=== PATIENT | female | born 1950 | race Caucasian/White ===

== ENCOUNTER 2016-07-25 09:00 | Day surgery (SDC) | payer MEDICARE ==
[~2016-07-25] VITALS: Ht 160 cm; Wt 82.1 kg
[~2016-07-25 09:00] MED LIST: 0.9% Sodium Chloride 1,000 ML ONE; ALBU8.5H2 INHALATION; ATEN50TA PO; CYCL10TA9 PO; EPIN0.3P2 IJ; IBUP800T28 PO; LEVO88TA4 PO; OMEP20CA11 PO; Sodium Chloride LOK Flush 10 mL Syringe IV PRN; fentaNYL-PF 50 mCg/mL 2 mL Inj IVPUSH PRN
[2016-07-25 09:13] VITALS: BP 132/76; PULSE 67; RESP 16; O2SAT 96
[2016-07-25] MEDS ORDERED: [UNRECOGNIZED DRUG - CODE] MC (09:16)
[2016-07-25] MEDS ORDERED: 5-HY50CA3 PO (09:16)
[2016-07-25] MEDS ORDERED: PRAV20TA2 PO (09:16)
[2016-07-25] MEDS ORDERED: TRIA1CAP5 PO (09:16)
[2016-07-25 11:10] VITALS: BP 119/69; PULSE 76; RESP 14; O2SAT 95
[2016-07-25 11:20] VITALS: BP 111/67; PULSE 71; RESP 14; O2SAT 97
--- NOTE | 2016-07-25 11:27 | ENDO ---
[address] [address] ENDOSCOPY PROCEDURE PATIENT: LEESA PELAEZ : 1950 MR#: [id number] ADMIT: 07/25/2016 JOB ID: [id number] DATE: 07/25/2016 TYPE OF OPERATION: Esophagogastroduodenoscopy with biopsy and colonoscopy. PREOPERATIVE DIAGNOSIS(ES): 1. Gastroesophageal reflux disease. 2. Family history of colon cancer. POSTOPERATIVE DIAGNOSIS(ES): 1. Mild nonerosive gastritis status post biopsy. 2. Mild sigmoid diverticulosis, otherwise no polyps. ANESTHESIA: 1. Fentanyl 100 mcg. 2. Versed 4 mg IV administered. COMPLICATION: None. BLOOD LOSS: Minimal. DESCRIPTION OF PROCEDURE: After risks and benefits were explained to the patient, informed consent was obtained. After anesthesia administered, an upper endoscope was inserted into mouth intubating to the esophagus, stomach, second portion of duodenum, and mucosa carefully examined. After procedure was done, the scope withdrawn and procedure terminated. A colonoscope was inserted from the rectum to the cecum. Mucosa carefully examined. Prep of the patient was excellent. After procedure was done, the scope withdrawn and procedure terminated. FINDINGS: Upon inspection of the esophagus, the esophagus was normal without masses, ulcers or lesions. Z-line located 35 cm from incisors. Upon entering the stomach, there is mild nonerosive gastritis that was seen. No polyps or masses or lesions were seen. Retroflexion was normal. Duodenal bulb, first and second portion normal. Biopsies taken of the antrum and body of stomach and distal esophagus. Upon inspection of the anus, no masses, hemorrhoids, ulcers, fissures that were seen. Throughout the entire examination, there is mild sigmoid diverticulosis. No polyps or masses were seen. Retroflexion was normal. IMPRESSIONS: 1. Mild sigmoid diverticulosis. 2. Mild nonerosive gastritis. RECOMMENDATION: 1. Await pathology results. 2. Repeat colonoscopy in five years given family history of colon cancer. 3. High fiber diet.
[2016-07-25 11:29] VITALS: BP 124/67; PULSE 74; RESP 16; O2SAT 95
--- NOTE | 2016-07-28 14:08 | PATH ---
SURGICAL PATHOLOGY Attending Physician:Drew Silva MD CASE STATUS: Signed Out PATIENT NAME: LEESA PELAEZ PID: [id number] : 1950 DATE COLLECTED:07/25/2016 15:56 SPECIMEN: 1: Stomach, Antrum, Biopsy 2: Gastric, Biopsy 3: Esophagus, Biopsy CLINICAL HISTORY: 1: ANTRUM BIOPSY 2: GASTRIC BODY BIOPSY 3: DISTAL ESOPHAGUS BIOPSY FINAL DIAGNOSIS: 1. Antrum Biopsies: Changes consistent with reactive gastropathy. Negative for evidence of Helicobacter. Negative for intestinal metaplasia. Negative for dysplasia and malignancy. 2. Gastric Body Biopsy: Mild superficial chronic gastritis involving fundic mucosa. Negative for evidence of Helicobacter. Negative for intestinal metaplasia. Negative for dysplasia and malignancy. 3. Distal Esophagus Biopsy: Squamous mucosa and gastric cardia-type mucosa negative for specialized metaplasia of Perez's type esophagus. Negative for dysplasia and malignancy. Eosinophils are increased. ICD10 K29.70 GROSS DESCRIPTION: The specimen is received in three formalin filled containers labeled with the patient's name. 1). The specimen a sublabeled "antrum" and consists of 3 tiny portions of tissue which aggregate to 0.3 x 0.3 x 0.2 CM. The specimen is entirely submitted in cassette 1A. 2). The specimen is sublabeled "gastric body" and consists of 3 portions of tissue which aggregate to 0.4 x 0.3 x 0.2 CM. The specimen is entirely submitted in cassette 2A. 3). The specimen is sublabeled "distal esophagus" and consists of 3 portions of tissue which aggregate to 0.3 x 0.3 x 0.2 CM. The specimen is entirely submitted in cassette 3A. 07/25/2016 [facility] ICD-9 CODES: CPT CODES: 1: 26620 2: 06832 3: 76864 Electronically Signed Out Rene Lambert MD [facility] Pathology [facility], [place] [address] Technical component performed at [facility], [facility] [address], [place], [address]
== END 2016-07-25 23:59 | disposition home or self-care (01) ==
LOC: END 09:00
PROVIDERS: ATTEND Internal Medicine Gastroenterology
PROC: 0DJD8ZZ Inspection of Lower Intestinal Tract, Via Natural or Artificial Opening Endoscopic (ICD-10-PCS; principal; 2016-07-25 09:45)
DX: Z12.11 Encounter for screening for malignant neoplasm of colon (principal); Z80.0 Family history of malignant neoplasm of digestive organs; K57.30 Diverticulosis of large intestine without perforation or abscess without bleeding; K21.9 Gastro-esophageal reflux disease without esophagitis; K29.30 Chronic superficial gastritis without bleeding; I10 Essential (primary) hypertension
CPT/HCPCS: 43239; 88305; 99153; G0105; G0500; J2250; J7030